=== PATIENT | female | born 1960 | race African-American/Black ===

== ENCOUNTER 2018-10-17 13:30 | Emergency (ER) | payer BC ==
[~2018-10-17] VITALS: Ht 160 cm; Wt 122.5 kg
[~2018-10-17 13:30] MED LIST: AMOXICILLIN875 MG PO; FLONASE16 GM INH; NORCO 5-325 TA1 EACH PO
[2018-10-17] MEDS ORDERED: MECLIZINE HCL25 MG PO (15:14)
[2018-10-17] MEDS ORDERED: ZOFRAN ODT4 MG PO (15:14)
[2018-10-17 15:26] VITALS: BP 126/62
== END 2018-10-17 15:32 | disposition home or self-care (01) ==
LOC: ER 13:30
DX: R42 Dizziness and giddiness (principal)